=== PATIENT | male | born 1990 | race African-American/Black ===

== ENCOUNTER 2018-10-11 22:11 | Emergency (ER) | payer BC ==
[2018-10-11 23:11] LABS: Absolute Lymphocytes (CBC) 1.1 K/uL (0.7-4.9); Absolute Monocytes 0.6 K/uL (0.1-1.3); Absolute Neutrophil 2.8 K/uL (1.8-8.0); Basophils % 0.4 % (0-1.3); Eosinophils % 6.5 % (0-4.4); Hematocrit 42.2 % (39.6-49.0); Lymphocytes % 22.7 % (15.3-44.8); MCH 30.7 pg (27.0-35.0); MCV 89.6 fL (80-100); MPV 8.9 fL (7.6-11.3); Monocytes % 11.9 % (3.3-12.3); RBC Red Blood Cell Count 4.71 M/uL (4.33-5.43)
[2018-10-11] MEDS ORDERED: PROMETHAZINE 25 MG/ML VIAL ONE (23:21)
[2018-10-11] MEDS ORDERED: NA CHLORIDE 0.9% 1,000 ML ONE (23:21)
[2018-10-11 23:23] LABS: ALT/SGPT 20 U/L (12-78); AST/SGOT 24 U/L (15-37); Albumin 3.5 g/dL (3.4-5.0); Alkaline Phosphatase 46 U/L (45-117); BUN Blood Urea Nitrogen 11 mg/dL (7-18); Bicarbonate 20 mmol/L (21-32); Bilirubin Direct 0.2 mg/dL (0-0.2); Bilirubin Total 0.7 mg/dL (0.2-1.0); Glucose Level 118 mg/dL (74-106); Potassium 3.1 mmol/L (3.5-5.1); Protein, Total 7.5 g/dL (6.4-8.2); Sodium Level 134 mmol/L (136-145)
[2018-10-12] MEDS ORDERED: KCL 20 MEQ/100 mL IVPB 20 MEQ/100 ML BAG IV ONE (00:01)
[2018-10-12] MEDS ORDERED: NA CHLORIDE 0.9% 1,000 ML ONE (00:01)
--- NOTE | 2018-10-12 00:45 | ER ---
Nurse's Notes [facility] Name: Triston Johnson Age: 28 yrs Sex: Male : 1990 Arrival Date: 10/11/2018 Time: 22:15 Bed 15 Private MD: Diagnosis: Vomiting, unspecified;Diarrhea, unspecified;Dehydration;Hypokalemia Presentation: 10/11 22:30 Presenting complaint: Patient states: Abdominal pain mostly at the center with nausea, cc3 vomiting, and diarrhea since 3 days. Transition of care: patient was not received from another setting of care. Onset of symptoms was October 08, 2018. Risk Assessment: Do you want to hurt yourself or someone else? Patient reports no desire to harm self or others. Initial Sepsis Screen: Does the patient meet any 2 criteria? No. Patient's initial sepsis screen is negative. Does the patient have a suspected source of infection? No. Patient's initial sepsis screen is negative. Care prior to arrival: None. 22:30 Method Of Arrival: Ambulatory cc3 22:30 Acuity: LOI 3 cc3 Triage Assessment: 22:30 General: Appears in no apparent distress. uncomfortable, Behavior is calm, cooperative, cc3 appropriate for age. Pain: Complains of pain in umbilical area. EENT: No signs and/or symptoms were reported regarding the EENT system. Neuro: Level of Consciousness is awake, alert, obeys commands, Oriented to person, place, time, situation, Appropriate for age. Cardiovascular: Denies chest pain. Respiratory: Airway is patent Respiratory effort is even, unlabored, Respiratory pattern is regular, symmetrical. GI: Reports lower abdominal pain, upper abdominal pain, diarrhea, nausea, vomiting. : No signs and/or symptoms were reported regarding the genitourinary system. Derm: No signs and/or symptoms reported regarding the dermatologic system. Musculoskeletal: Circulation, motion, and sensation intact. Range of motion: intact in all extremities. Historical: - Allergies: 22:30 No Known Allergies; cc3 - Home Meds: 22:30 None [Active]; cc3 - PMHx: 22:30 None; cc3 - PSHx: 22:30 None; cc3 - Immunization history:: Adult Immunizations not up to date. - Social history:: Smoking status: Patient uses tobacco products, smokes one pack cigarettes per day. - Ebola Screening: : No symptoms or risks identified at this time. Screenin:30 Abuse screen: Denies threats or abuse. Denies injuries from another. Nutritional cc3 screening: No deficits noted. Tuberculosis screening: No symptoms or risk factors identified. Fall Risk Ambulatory Aid- None/Bed Rest/Nurse Assist (0 pts). Gait- Normal/Bed Rest/Wheelchair (0 pts) Mental Status- Oriented to own ability (0 pts). Assessment: 22:30 General: see triage assessment. cc3 23:15 Reassessment: Patient appears in no apparent distress at this time. Patient and/or cc3 family updated on plan of care and expected duration. Pain level reassessed. Patient is alert, oriented x 3, equal unlabored respirations, skin warm/dry/pink. GI: Reports lower abdominal pain, upper abdominal pain, nausea, vomiting. 10/12 00:20 Reassessment: Patient appears in no apparent distress at this time. Patient and/or cc3 family updated on plan of care and expected duration. Pain level reassessed. Patient is alert, oriented x 3, equal unlabored respirations, skin warm/dry/pink. 00:45 Reassessment: CREDIT ADMINISTRATION OFFICER Jacquelyn discharged the patient with prescription given and said to cc3 finish the potassium infusion before discharging the patient home. 01:20 Reassessment: Patient appears in no apparent distress at this time. Patient and/or cc3 family updated on plan of care and expected duration. Pain level reassessed. Patient is alert, oriented x 3, equal unlabored respirations, skin warm/dry/pink. 02:30 Reassessment: Patient appears in no apparent distress at this time. Patient and/or cc3 family updated on plan of care and expected duration. Pain level reassessed. Patient is alert, oriented x 3, equal unlabored respirations, skin warm/dry/pink. Potassium infusion completed. Patient discharged home, IV cannula removed and patient left ER vitally stable and ambulatory with his family. Vital Signs: 10/11 22:30 BP 125 / 82; Pulse 98; Resp 19 S; Temp 99.2(O); Pulse Ox 97% on R/A; Weight 83.91 kg cc3 (R); Height 6 ft. 0 in. (182.88 cm) (R); 23:30 BP 123 / 68; Pulse 102; Resp 20 S; Pulse Ox 98% on R/A; cc3 10/12 00:23 BP 121 / 77; Pulse 100; Resp 19 S; Pulse Ox 100% on R/A; cc3 01:45 BP 111 / 77; Pulse 97; Resp 18 S; Pulse Ox 99% on R/A; cc3 02:22 BP 122 / 79; Pulse 98; Resp 17 S; Pulse Ox 100% on R/A; cc3 10/11 22:30 Body Mass Index 25.09 (83.91 kg, 182.88 cm) cc3 ED Course: 10/11 22:15 Patient arrived in ED. am2 22:28 Lee Ann Stevens is Primary Nurse. cc3 22:28 Jacquelyn Everett FNP-C is PHCP. snw 22:28 Lito Fraga MD is Attending Physician. snw 22:30 Arm band placed on right wrist. cc3 22:30 Patient has correct armband on for positive identification. Bed in low position. Call cc3 light in reach. Side rails up X 1. Pulse ox on. NIBP on. 22:51 Triage completed. cc3 22:54 Inserted saline lock: 20 gauge in right antecubital area, using aseptic technique. mw2 Blood collected. 23:02 Strep Sent. mw2 23:02 Flu Sent. mw2 23:02 Chem 7 Sent. mw2 23:03 CBC with Diff Sent. mw2 23:03 LFT's Sent. 2 10/12 02:30 No provider procedures requiring assistance completed. IV discontinued, intact, cc3 bleeding controlled, No redness/swelling at site. Pressure dressing applied. Administered Medications: 10/11 23:20 Drug: NS 0.9% 1000 ml Route: IV; Rate: 1 bolus; Site: right antecubital; 3 10/12 00:20 Follow up: Response: No adverse reaction; IV Status: Completed infusion; IV Intake: cc3 1000ml 10/11 23:22 Drug: Phenergan 12.5 mg Route: IVP; Site: right antecubital; 3 23:50 Follow up: Response: No adverse reaction 3 23:50 Drug: Potassium Chloride 20 mEq Route: IV; Rate: calculated rate; Site: right 3 antecubital; 10/12 02:20 Follow up: Response: No adverse reaction; IV Status: Completed infusion; IV Intake: cc3 100ml 00:30 Drug: NS 0.9% 1000 ml Route: IV; Rate: 1 bolus; Site: right antecubital; cc3 01:30 Follow up: Response: No adverse reaction; IV Status: Completed infusion; IV Intake: cc3 1000ml Intake: 00:20 IV: 1000ml; Total: 1000ml. cc3 01:30 IV: 1000ml; Total: 2000ml. cc3 02:20 IV: 100ml; Total: 2100ml. cc3 Outcome: 00:44 Discharge ordered by . snw 02:30 Discharged to home ambulatory, with family. cc3 02:30 Condition: stable 02:30 Discharge instructions given to patient, family, Instructed on discharge instructions, follow up and referral plans. medication usage, Demonstrated understanding of instructions, follow-up care, medications, Prescriptions given X 2. 02:39 Patient left the ED. cc3 Signatures: Jacquelyn Everett, CILNICAL SCIENTIST-C CILNICAL SCIENTIST-Csnw Christa Zapata am2 Richie Edge 2 Lee Ann Stevens cc3
--- NOTE | 2018-10-12 00:45 | EDPHYS ---
Physician Documentation [facility] Name: Triston Johnson Age: 28 yrs Sex: Male : 1990 Arrival Date: 10/11/2018 Time: 22:15 Bed 15 Private MD: ED Physician Lito Fraga HPI: 10/11 22:42 This 28 yrs old Black Male presents to ER via Unassigned with complaints of Fever, snw Vomiting. 22:42 The patient reports fever, not measured (subjective). Onset: The symptoms/episode snw began/occurred suddenly, 3 day(s) ago, and became persistent. Modifying factors: there are no obvious modifying factors. Associated signs and symptoms: Pertinent positives: abdominal pain, decreased appetite, diarrhea, nausea, sinus congestion, vomiting. Severity of symptoms: At their worst the symptoms were moderate. The patient has not experienced similar symptoms in the past. The patient has not recently seen a physician. Historical: - Allergies: 22:30 No Known Allergies; cc3 - Home Meds: 22:30 None [Active]; cc3 - PMHx: 22:30 None; cc3 - PSHx: 22:30 None; cc3 - Immunization history:: Adult Immunizations not up to date. - Social history:: Smoking status: Patient uses tobacco products, smokes one pack cigarettes per day. - Ebola Screening: : No symptoms or risks identified at this time. ROS: 22:43 Eyes: Negative for injury, pain, redness, and discharge. snw 22:43 Neck: Negative for injury, pain, and swelling, Cardiovascular: Negative for chest pain, palpitations, and edema, Respiratory: Negative for shortness of breath, cough, wheezing, and pleuritic chest pain. 22:43 Back: Negative for injury and pain, : Negative for injury, bleeding, discharge, and swelling, MS/Extremity: Negative for injury and deformity, Skin: Negative for injury, rash, and discoloration, Neuro: Negative for headache, weakness, numbness, tingling, and seizure. 22:43 Constitutional: Positive for body aches, fatigue, fever, malaise, poor PO intake. 22:43 ENT: Positive for sinus congestion. 22:43 Abdomen/GI: Positive for abdominal pain, nausea, vomiting, and diarrhea. Exam: 22:44 Head/Face: Normocephalic, atraumatic. Eyes: Pupils equal round and reactive to light, snw extra-ocular motions intact. Lids and lashes normal. Conjunctiva and sclera are non-icteric and not injected. Cornea within normal limits. Periorbital areas with no swelling, redness, or edema. Neck: Trachea midline, no thyromegaly or masses palpated, and no cervical lymphadenopathy. Supple, full range of motion without nuchal rigidity, or vertebral point tenderness. No Meningismus. Chest/axilla: Normal chest wall appearance and motion. Nontender with no deformity. No lesions are appreciated. Cardiovascular: Regular rate and rhythm with a normal S1 and S2. No gallops, murmurs, or rubs. Normal PMI, no JVD. No pulse deficits. Respiratory: Lungs have equal breath sounds bilaterally, clear to auscultation and percussion. No rales, rhonchi or wheezes noted. No increased work of breathing, no retractions or nasal flaring. Back: No spinal tenderness. No costovertebral tenderness. Full range of motion. Skin: Warm, dry with normal turgor. Normal color with no rashes, no lesions, and no evidence of cellulitis. MS/ Extremity: Pulses equal, no cyanosis. Neurovascular intact. Full, normal range of motion. Neuro: Awake and alert, GCS 15, oriented to person, place, time, and situation. Cranial nerves II-XII grossly intact. Motor strength 5/5 in all extremities. Sensory grossly intact. Cerebellar exam normal. Normal gait. Psych: Awake, alert, with orientation to person, place and time. Behavior, mood, and affect are within normal limits. 22:44 Constitutional: The patient appears alert, awake, uncomfortable, hot to touch 22:44 ENT: External ear(s): are unremarkable, Ear canal(s): are normal, TM's: are normal, Nose: nasal drainage, that is minimal, that is moderate, and is seen coming from both nares, that is clear, Mouth: is normal, Posterior pharynx: erythema, that is moderate, exudate, that is mild, Voice: is normal. 22:44 Abdomen/GI: Inspection: abdomen appears normal, Bowel sounds: hyperactive, in all quadrants, Palpation: soft, mild abdominal tenderness, in the umbilical area. Vital Signs: 22:30 BP 125 / 82; Pulse 98; Resp 19 S; Temp 99.2(O); Pulse Ox 97% on R/A; Weight 83.91 kg cc3 (R); Height 6 ft. 0 in. (182.88 cm) (R); 23:30 BP 123 / 68; Pulse 102; Resp 20 S; Pulse Ox 98% on R/A; cc3 10/12 00:23 BP 121 / 77; Pulse 100; Resp 19 S; Pulse Ox 100% on R/A; cc3 01:45 BP 111 / 77; Pulse 97; Resp 18 S; Pulse Ox 99% on R/A; cc3 02:22 BP 122 / 79; Pulse 98; Resp 17 S; Pulse Ox 100% on R/A; cc3 10/11 22:30 Body Mass Index 25.09 (83.91 kg, 182.88 cm) cc3 MDM: 10/11 22:28 Patient medically screened. snw 10/12 00:44 Data reviewed: vital signs, nurses notes. Data interpreted: Pulse oximetry: on room air snw is 100 %. Interpretation: normal. Counseling: I had a detailed discussion with the patient and/or guardian regarding: the historical points, exam findings, and any diagnostic results supporting the discharge/admit diagnosis, lab results, the need for outpatient follow up, to return to the emergency department if symptoms worsen or persist or if there are any questions or concerns that arise at home. Response to treatment: the patient's symptoms have markedly improved after treatment, and as a result, I will discharge patient. Special discussion: Based on the patient's Hx, exam, and Dx evaluation, there is no indication for emergent surgery or inpatient Tx. It is understood by the patient/guardian that if the Sx's persist or worsen they need to return immediately for re-evaluation. Based on the history and exam findings, there is no indication for further emergent testing or inpatient evaluation. I discussed with the patient/guardian the need to see the primary care provider for further evaluation of the symptoms. 10/11 22:42 Order name: CBC with Diff; Complete Time: 23:32 snw 10/11 22:42 Order name: Chem 7; Complete Time: 23:32 snw 10/11 22:42 Order name: Strep; Complete Time: 23:32 snw 10/11 22:42 Order name: Flu; Complete Time: 23:32 snw 10/11 22:42 Order name: LFT's; Complete Time: 23:32 snw 10/11 23:32 Order name: Throat Culture EDMS 10/12 01:21 Order name: Urine Dipstick--Ancillary (enter results); Complete Time: : ar5 Administered Medications: 10/11 23:20 Drug: NS 0.9% 1000 ml Route: IV; Rate: 1 bolus; Site: right antecubital; cc3 10/12 00:20 Follow up: Response: No adverse reaction; IV Status: Completed infusion; IV Intake: cc3 1000ml 10/11 23:22 Drug: Phenergan 12.5 mg Route: IVP; Site: right antecubital; 3 23:50 Follow up: Response: No adverse reaction [facility] 23:50 Drug: Potassium Chloride 20 mEq Route: IV; Rate: calculated rate; Site: right cc3 antecubital; 10/12 02:20 Follow up: Response: No adverse reaction; IV Status: Completed infusion; IV Intake: cc3 100ml 00:30 Drug: NS 0.9% 1000 ml Route: IV; Rate: 1 bolus; Site: right antecubital; cc3 01:30 Follow up: Response: No adverse reaction; IV Status: Completed infusion; IV Intake: cc3 1000ml Disposition: 04:12 Co-signature as Attending Physician, Lito Fraga MD. Disposition: 10/12/18 00:44 Discharged to Home. Impression: Vomiting, unspecified, Diarrhea, unspecified, Dehydration, Hypokalemia. - Condition is Stable. - Discharge Instructions: Food Choices to Help Relieve Diarrhea, Adult, Dehydration, Adult, Diarrhea, Adult, Clear Liquid Diet, Adult, Potassium Content of Foods, Nausea and Vomiting, Adult, Rehydration, Adult. - Prescriptions for Bentyl 20 mg Oral Tablet - take 1 tablet by ORAL route every 6 hours As needed; 20 tablet. Zofran 4 mg Oral Tablet - take 1 tablet by ORAL route every 12 hours As needed; 20 tablet. - Work release form, Medication Reconciliation Form, Thank You Letter, Antibiotic Education, Prescription Opioid Use form. - Follow up: Private Physician; When: 2 - 3 days; Reason: Recheck today's complaints, Continuance of care, Re-evaluation by your physician. Follow up: Emergency Department; When: As needed; Reason: Worsening of condition. Signatures: Dispatcher [employer] EDMS Jacquelyn Everett, EMILY-C SCRAP METAL COLLECTOR-Csnw Lito Fraga MD MD gs Cordel, Charlene cc3 Corrections: (The following items were deleted from the chart) 02:39 00:44 10/12/2018 00:44 Discharged to Home. Impression: Vomiting, unspecified; Diarrhea, cc3 unspecified; Dehydration; Hypokalemia. Condition is Stable. Discharge Instructions: Food Choices to Help Relieve Diarrhea, Adult, Dehydration, Adult, Diarrhea, Adult, Clear Liquid Diet, Adult, Potassium Content of Foods, Nausea and Vomiting, Adult, Rehydration, Adult. Prescriptions for Bentyl 20 mg Oral Tablet - take 1 tablet by ORAL route every 6 hours As needed; 20 tablet, Zofran 4 mg Oral Tablet - take 1 tablet by ORAL route every 12 hours As needed; 20 tablet. and Forms are Work release form, Medication Reconciliation Form, Thank You Letter, Antibiotic Education, Prescription Opioid Use. Follow up: Private Physician; When: 2 - 3 days; Reason: Recheck today's complaints, Continuance of care, Re-evaluation by your physician. Follow up: Emergency Department; When: As needed; Reason: Worsening of condition. snw
[2018-10-12 01:26] LABS: Urine Blood TRACE (NEG); Urine Glucose NEGATIVE (NEG); Urine Protein NEGATIVE (NEG); Urine Specific Gravity <1.005 (1.005-1.030); Urine pH 5.5 (5.0-7.0)
== END 2018-10-12 02:39 | disposition home or self-care (01) ==
LOC: ER 22:11
DX: E86.0 Dehydration (principal); R19.7 Diarrhea, unspecified; E87.6 Hypokalemia; F17.210 Nicotine dependence, cigarettes, uncomplicated
CPT/HCPCS: 36415; 80048; 80076; 81003; 85025; 87070; 87081; 87804; 96365; 96366; 96375; 99284; J2550; J7030

== ENCOUNTER 2018-10-15 11:26 | Emergency (ER) | payer BC ==
--- NOTE | 2018-10-15 14:02 | EDPHYS ---
Physician Documentation [facility] Name: Triston Johnson Age: 28 yrs Sex: Male : 1990 Arrival Date: 10/15/2018 Time: 11:29 Bed 28 Private MD: None, None ED Physician Aubrey Barcenas HPI: 10/15 13:56 This 28 yrs old Black Male presents to ER via Ambulatory with complaints of Vomiting. valeriy 13:56 The patient presents to the emergency department with nausea, vomiting, that is valeriy intermittent. Onset: The symptoms/episode began/occurred 5 day(s) ago. Possible causes: unknown. The symptoms are aggravated by nothing. The symptoms are alleviated by nothing. Associated signs and symptoms: Pertinent positives: abdominal pain, vomiting. Historical: - Allergies: 11:33 No Known Allergies; ss - Home Meds: :33 Adderall XR 20 mg Oral cp24 2 cap once daily [Active]; ss - PMHx: :33 ADD/ADHD; ss - PSHx: 11:33 None; ss - Immunization history:: Adult Immunizations unknown. - Social history:: Smoking status: Patient uses tobacco products, smokes one-half pack cigarettes per day. - Ebola Screening: : Patient denies exposure to infectious person Patient denies travel to an Ebola-affected area in the 21 days before illness onset. - Family history:: not pertinent. ROS: 13:56 Constitutional: Negative for fever, chills, and weight loss, Eyes: Negative for injury, valeriy pain, redness, and discharge, ENT: Negative for injury, pain, and discharge, Neck: Negative for injury, pain, and swelling, Cardiovascular: Negative for chest pain, palpitations, and edema, Respiratory: Negative for shortness of breath, cough, wheezing, and pleuritic chest pain, Back: Negative for injury and pain, : Negative for injury, bleeding, discharge, and swelling, MS/Extremity: Negative for injury and deformity, Skin: Negative for injury, rash, and discoloration, Neuro: Negative for headache, weakness, numbness, tingling, and seizure, Psych: Negative for depression, anxiety, suicide ideation, homicidal ideation, and hallucinations, Allergy/Immunology: Negative for hives, rash, and allergies, Endocrine: Negative for neck swelling, polydipsia, polyuria, polyphagia, and marked weight changes, Hematologic/Lymphatic: Negative for swollen nodes, abnormal bleeding, and unusual bruising. 13:56 Abdomen/GI: Positive for abdominal pain, nausea and vomiting, of the right lower quadrant and left lower quadrant. Exam: 14:00 Constitutional: This is a well developed, well nourished patient who is awake, alert, valeriy and in no acute distress. Head/Face: Normocephalic, atraumatic. Eyes: Pupils equal round and reactive to light, extra-ocular motions intact. Lids and lashes normal. Conjunctiva and sclera are non-icteric and not injected. Cornea within normal limits. Periorbital areas with no swelling, redness, or edema. ENT: Nares patent. No nasal discharge, no septal abnormalities noted. Tympanic membranes are normal and external auditory canals are clear. Oropharynx with no redness, swelling, or masses, exudates, or evidence of obstruction, uvula midline. Mucous membranes moist. Neck: Trachea midline, no thyromegaly or masses palpated, and no cervical lymphadenopathy. Supple, full range of motion without nuchal rigidity, or vertebral point tenderness. No Meningismus. Chest/axilla: Normal chest wall appearance and motion. Nontender with no deformity. No lesions are appreciated. Cardiovascular: Regular rate and rhythm with a normal S1 and S2. No gallops, murmurs, or rubs. Normal PMI, no JVD. No pulse deficits. Respiratory: Lungs have equal breath sounds bilaterally, clear to auscultation and percussion. No rales, rhonchi or wheezes noted. No increased work of breathing, no retractions or nasal flaring. Back: No spinal tenderness. No costovertebral tenderness. Full range of motion. Male : Normal genitalia with no discharge or lesions. Skin: Warm, dry with normal turgor. Normal color with no rashes, no lesions, and no evidence of cellulitis. MS/ Extremity: Pulses equal, no cyanosis. Neurovascular intact. Full, normal range of motion. Neuro: Awake and alert, GCS 15, oriented to person, place, time, and situation. Cranial nerves II-XII grossly intact. Motor strength 5/5 in all extremities. Sensory grossly intact. Cerebellar exam normal. Normal gait. Psych: Awake, alert, with orientation to person, place and time. Behavior, mood, and affect are within normal limits. 14:00 Abdomen/GI: Inspection: abdomen appears normal, Bowel sounds: normal, Palpation: moderate abdominal tenderness, in the right lower quadrant and left lower quadrant, Liver: no appreciated palpable abnormalities, Hernia: not appreciated. Vital Signs: 11:33 BP 114 / 70; Pulse 84; Resp 16; Temp 97.5(TE); Pulse Ox 100% on R/A; Weight 83.91 kg; ss Height 6 ft. 0 in. (182.88 cm); Pain 8/10; 11:33 Body Mass Index 25.09 (83.91 kg, 182.88 cm) ss MDM: 13:06 Patient medically screened. [facility] 14:00 Data reviewed: vital signs, nurses notes, lab test result(s), CBC, electrolytes, [facility] hepatic panel, urinalysis. 10/15 13:55 Order name: IV Saline Lock [facility] 10/15 13:55 Order name: Labs collected and sent [facility] 10/15 13:55 Order name: Urine Dipstick-Ancillary (obtain specimen) [facility] Administered Medications: No medications were administered Disposition: 10/15/18 14:01 Patient has left against medical advice. Impression: Vomiting, Abdominal tenderness. - Patients states they are going to Home. - Condition is Stable. - Discharge Instructions: Abdominal Pain, Adult, Nausea and Vomiting, Adult, Nausea and Vomiting, Adult, [id number], Abdominal Pain, Adult, [id number]. Follow up: Private Physician; When: Upon discharge from the Emergency Department; Reason: Recheck today's complaints, Continuance of care, Re-evaluation by your physician. - Problem is new. - Symptoms have improved. Signatures: Dispatcher [employer] [facility] Aubrey Barcenas MD MD cha Smirch, Shelby, RN RN Sparkle Schroeder RN RN kr2 Corrections: (The following items were deleted from the chart) 14:23 13:56 Abdomen Pelvis W Con+CT.RAD.BRZ ordered. [facility] 14:24 14:01 10/15/2018 14:01 Patients has left against medical advice. Impression: Vomiting; kr2 Abdominal tenderness. Patient states they are going to Home. Condition is Stable. Follow up: Private Physician; When: Upon discharge from the Emergency Department; Reason: Recheck today's complaints, Continuance of care, Re-evaluation by your physician. Problem is new. Symptoms have improved. valeriy
--- NOTE | 2018-10-15 14:02 | ER ---
Nurse's Notes [facility] Name: Triston Johnson Age: 28 yrs Sex: Male : 1990 Arrival Date: 10/15/2018 Time: 11:29 Bed 28 Private MD: None, None Diagnosis: Vomiting;Abdominal tenderness Presentation: 10/15 11:31 Presenting complaint: Patient states: abd pain, N/V/D x 3 days. Transition of care: ss patient was not received from another setting of care. Onset of symptoms was September. Risk Assessment: Do you want to hurt yourself or someone else? Patient reports no desire to harm self or others. Initial Sepsis Screen: Does the patient meet any 2 criteria? No. Patient's initial sepsis screen is negative. Does the patient have a suspected source of infection? No. Patient's initial sepsis screen is negative. Care prior to arrival: None. 11:31 Method Of Arrival: Ambulatory 11:31 Acuity: LOI 3 Historical: - Allergies: 11:33 No Known Allergies; ss - Home Meds: 11:33 Adderall XR 20 mg Oral cp24 2 cap once daily [Active]; ss - PMHx: 11:33 ADD/ADHD; ss - PSHx: 11:33 None; ss - Immunization history:: Adult Immunizations unknown. - Social history:: Smoking status: Patient uses tobacco products, smokes one-half pack cigarettes per day. - Ebola Screening: : Patient denies exposure to infectious person Patient denies travel to an Ebola-affected area in the 21 days before illness onset. - Family history:: not pertinent. Assessment: 13:15 Reassessment: Patient refused medical exams and treatment. kr2 Vital Signs: 11:33 BP 114 / 70; Pulse 84; Resp 16; Temp 97.5(TE); Pulse Ox 100% on R/A; Weight 83.91 kg; ss Height 6 ft. 0 in. (182.88 cm); Pain 8/10; 11:33 Body Mass Index 25.09 (83.91 kg, 182.88 cm) ED Course: 11:29 Patient arrived in ED. mr 11:30 None, None is Private Physician. mr 11:32 Triage completed. ss 11:33 Arm band placed on right wrist. 13:06 Aubrey Barcenas MD is Attending Physician. [facility] 13:36 Sparkle Schroeder, RN is Primary Nurse. kr2 Administered Medications: No medications were administered Outcome: 14:24 Patient left the ED. kr2 Signatures: Aubrey Barcenas MD MD cha Rivera Kenzie mr ClarosKelly, RN RN Sparkle Schroeder, RN RN kr2
== END 2018-10-15 14:24 | disposition left against medical advice (07) ==
LOC: ER 11:26
DX: R10.819 Abdominal tenderness, unspecified site (principal); F90.9 Attention-deficit hyperactivity disorder, unspecified type; F17.210 Nicotine dependence, cigarettes, uncomplicated
CPT/HCPCS: 99281